=== PATIENT | female | born 1955 | race African-American/Black ===

== ENCOUNTER 2017-01-16 19:14 | Emergency (ER) | payer OTHER ==
[~2017-01-16 19:14] MED LIST: APRES25 PO; APRES50 PO; ASAEC PO; COGEN1 PO; CYANO1000T PO; DEPAKOT500 PO; HYDROCHLOROT50 MG PO; I40 PO; IMDUR30 PO; INDE80 PO; INDE80LA PO; IRON PO; IRON325 MG PO; LAMICTAL150 MG PO; MICROZIDE PO; NEUR100 PO; NEUR300 PO; NORV10 PO; PREV30 PO; SEROQUEL300 MG PO; SEROQUEL400 MG PO; SEROQUEL50 MG PO; SIMCOR1 TAB PO; VICODINTAB PO
[2017-01-16 20:27] LABS: A/G RATIO 0.7 (0.7-1.9); ALBUMIN 3.5 G/DL (3.5-5.0); ALKALINE PHOSPHATASE 80 U/L (45-117); BUN (BLOOD UREA NITROGEN) 11 MG/DL (6-23); CALCIUM, SERUM 8.7 MG/DL (8.5-10.4); CHLORIDE, SERUM 105 MMOL/L (96-112); CO2 (CARBON DIOXIDE) 24 MMOL/L (24-34); CREATININE 1.27 MG/DL (0.55-1.02); GFR AFRICAN AMERICAN 53 ML/MIN (>=60); GFR NON AFRICAN AMERICAN 46 ML/MIN (>=60); GLOBULIN 4.9 G/DL (2.5-4.1); GLUCOSE, SERUM 97 MG/DL (60-99); POTASSIUM, SERUM 3.4 MMOL/L (3.5-5.3); SGOT(AST) 19 U/L (5-40); SGPT(ALT) 20 U/L (5-65); SODIUM, SERUM 140 MMOL/L (135-148); TOTAL BILIRUBIN 0.4 MG/DL (0-1.2); TOTAL PROTEIN 8.4 G/DL (6.0-8.5)
[2017-01-16 20:29] LABS: LACTATE 0.9 MMOL/L (0.3-2.4)
[2017-01-16 20:30] LABS: INFLUENZA B SCREEN NEGATIVE (NEGATIVE)
[2017-01-16 20:31] LABS: INFLUENZA A SCREEN POSITIVE (NEGATIVE)
[2017-01-16 20:55] LABS: BASOPHILS 0.1 %; BASOPHILS ABSOLUTE 0.01 10/3/uL (0.0-0.16); EOSINOPHILS 0 %; ER CBC TAT 0 Hrs 09 Mins; HEMATOCRIT 35.8 % (36.0-48.0); HEMOGLOBIN 12.4 g/dL (12.0-16.0); IMMATURE GRANULOCYTES 0.3 %; IMMATURE GRANULOCYTES ABSOLUTE 0.02 10/3/uL (0.0-0.11); LYMPHOCYTES 17.4 %; LYMPHOCYTES ABSOLUTE 1.35 10/3/uL (0.67-4.30); MEAN CORPUS HGB CONC 34.6 g/dL (32.0-36.0); MEAN CORPUSCULAR HEMOGLOB 30.1 pg (26.0-34.0); MEAN PLATELET VOLUME 9.9 fL (9.2-13.0); MONOCYTES 13.3 %; MONOCYTES ABSOLUTE 1.03 10/3/uL (0.21-1.20); NEUTROPHILS 68.9 %; NEUTROPHILS ABSOLUTE 5.33 10/3/uL (2.02-8.40); PLATELET COUNT 238 10/3/uL (150-400); RBC DISTRIBUTION WIDTH 14.8 % (12.0-16.0); RED CELL COUNT 4.12 10/6/uL (4.0-5.6); WHITE BLOOD CELLS 7.7 10/3/uL (4.5-10.5)
[2017-01-16 20:56] LABS: MANUAL DIFF NO %; MEAN CORPUSCULAR VOLUME 86.9 fL (80-100)
== END 2017-01-16 21:14 | disposition home or self-care (01) ==
LOC: ER 19:14
PROVIDERS: Physician Assistant
DX: J11.1 Influenza due to unidentified influenza virus with other respiratory manifestations (principal); F17.200 Nicotine dependence, unspecified, uncomplicated; E11.9 Type 2 diabetes mellitus without complications; I10 Essential (primary) hypertension; Z88.5 Allergy status to narcotic agent; Z79.899 Other long term (current) drug therapy; Z79.82 Long term (current) use of aspirin
CPT/HCPCS: 71010; 80053; 83605; 85025; 87040; 87804; 93005; 94640; 99284

== ENCOUNTER 2017-01-20 15:46 | Emergency (ER) | payer OTHER | END 2017-01-20 18:57 | disposition home or self-care (01) | LOC: ER 15:46 | DX: S39.012A Strain of muscle, fascia and tendon of lower back, initial encounter (principal); I10 Essential (primary) hypertension; F17.200 Nicotine dependence, unspecified, uncomplicated; Z88.5 Allergy status to narcotic agent; Z79.82 Long term (current) use of aspirin; Z79.899 Other long term (current) drug therapy; V29.20XA Unspecified motorcycle rider injured in collision with unspecified motor vehicles in nontraffic accident, initial encounter | CPT/HCPCS: 72131; 72170; 96372; 99284 ==